=== PATIENT | male | born 1980 | race Caucasian/White ===

== ENCOUNTER 2017-08-17 03:31 | Inpatient (IN) | payer SELFPAY ==
[~2017-08-17] VITALS: Ht 180.3 cm; Wt 64.2 kg
[2017-08-17] VITALS (13 sets, daily range): BP systolic 114–131; BP diastolic 71–97
[2017-08-17 03:59] LABS: HEMOGLOBIN 12.7 G/DL (13.3-17.7); RED BLOOD COUNT 4.14 10^6/uL (4.35-5.85); RED CELL DISTRIBUTION WIDTH 13.2 % (10.0-14.5); WHITE BLOOD COUNT 9.2 10^3/uL (4.3-11.0)
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
[2017-08-17] MEDS ORDERED: TETANUS,DIPTH,PERTUSS P/F (BOOSTRIX) 0.5 ML VIAL IM ONE ×2 (04:15→04:39)
[2017-08-17 04:21] LABS: FIBRIN DEGRADATION PRODUCTS 1.1 UG/ML (0.00-0.49); INR 1.2 (0.8-1.4); PROTHROMBIN TIME PATIENT 14.9 SEC (12.2-14.7)
[2017-08-17 04:23] LABS: ALANINE AMINOTRANSFERASE 28 U/L (0-55); ALBUMIN 4.4 GM/DL (3.2-4.5); ALKALINE PHOSPHATASE 91 U/L (40-136); BILIRUBIN,DIRECT 0.4 MG/DL (0.0-0.3); BILIRUBIN,INDIRECT 0.6 MG/DL; BUN/CREATININE RATIO 11; CALCIUM 9.5 MG/DL (8.5-10.1); CHLORIDE 110 MMOL/L (98-107); CREATINE KINASE 828 U/L (30-200); CREATININE SERUM 1.48 MG/DL (0.60-1.30); GFR ESTIMATED 53; GLUCOSE 192 MG/DL (70-105); MAGNESIUM 2.5 MG/DL (1.8-2.4); PHOSPHORUS 4.7 MG/DL (2.3-4.7); POTASSIUM 3.3 MMOL/L (3.6-5.0); SODIUM 142 MMOL/L (135-145); TOTAL PROTEIN 7.6 GM/DL (6.4-8.2)
[2017-08-17 04:31] LABS: CARBON DIOXIDE 8 MMOL/L (21-32)
[2017-08-17] MEDS ORDERED: fentaNYL INJECTION 100 MCG/2 ML AMP IVP STA (04:36)
[2017-08-17] MEDS ORDERED: LACTATED RINGERS 1,000 ML IV SCH (04:38)
[2017-08-17] MEDS ORDERED: LACTATED RINGERS 1,000 ML IV ONE (04:38)
[2017-08-17] MEDS ORDERED: NS IV 1000 ML 1,000 ML ONE (04:38)
[2017-08-17] MEDS ORDERED: fentaNYL INJECTION 100 MCG/2 ML AMP ONE (04:38)
[2017-08-17] MEDS ORDERED: NS IV 1000 ML 1,000 ML IV SCH (04:38)
[2017-08-17] MEDS ORDERED: NALOXONE 0.4 MG/ML 1 ML (NARCAN) VIAL IV PRN (04:45)
[2017-08-17] MEDS ORDERED: HYDROcodone/APAP 7.5 MG/325 MG (LORTAB, LORCET PLUS) TABLET PO PRN (04:45)
[2017-08-17] MEDS ORDERED: metroNIDAZOLE 500MG/100ML IVPB 100 ML IV SCH (04:45)
[2017-08-17] MEDS ORDERED: METOCLOPRAMIDE INJ 10 MG/2 ML (REGLAN) IV PRN (04:45)
[2017-08-17] MEDS ORDERED: ONDANSETRON 4 MG/2 ML (SDV) Z0FRAN IV PRN (04:45)
[2017-08-17] MEDS ORDERED: diphenhydrAMINE 50 MG/ML INJ (BENADRYL) IV PRN (04:45)
[2017-08-17] MEDS ORDERED: RT-ALBUTEROL SULF 2.5 MG/3 ML PRE-MIX VIAL INH SCH (04:45)
[2017-08-17] MEDS ORDERED: diphenhydrAMINE 50 MG/ML INJ (BENADRYL) IVP PRN (04:45)
[2017-08-17] MEDS ORDERED: fentaNYL INJECTION 100 MCG/2 ML AMP IVP PRN (04:45)
[2017-08-17 04:56] LABS: ABG BASE EXCESS -7.1 MMOL/L (-2.5-2.5); ABG OXYGEN SATURATION 97 % (94-100); ABG PCO2 31 MMHG (35-45); ABG PH 7.36 (7.37-7.43); ABG PO2 94 MMHG (79-93); ABG TCO2 18.2 MMOL/L (21.0-31.0)
[2017-08-17 04:57] LABS: ALLENS TEST YES-POS; PATIENT TEMP 98.6; VENTILATOR NO
[2017-08-17] MEDS ORDERED: NS 250 ML (IVPB) BAG IV ONE (05:00)
[2017-08-17] MEDS ORDERED: IOHEXOL 350 MG/ML 100 ML (OMNIPAQUE 350) VIAL IV ONE (05:00)
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
[2017-08-17] MEDS ORDERED: LIDOCAINE 2% 20 ML (XYLOCAINE) VIAL ONE (05:27)
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
[2017-08-17] MEDS ORDERED: ceFAZolin 2 GM IV Premixed 50 ML IV SCH (06:00)
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
[2017-08-17] MEDS ORDERED: SENNA W/DOCUSATE (SENOKOT S) TABLET PO SCH (09:00)
[2017-08-17] MEDS ORDERED: PANTOPRAZOLE 40 MG/10 ML (PROTONIX) VIAL IV SCH (09:00)
[2017-08-17] MEDS: RT-ALBUTEROL SULF 2.5 MG/3 ML PRE-MIX VIAL INH SCH ×2 (10:07→14:37)
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
[2017-08-17] MEDS ORDERED: IBUP-1780 PO (11:58)
[2017-08-17] MEDS ORDERED: CEPH-507 PO (11:58)
--- NOTE | 2017-08-17 12:00 | Discharge Inst-Surgical ---
D/C Lap Instructions-RENEA New, Converted, or Re-Newed RX: RX on Chart Follow Up Appt in 2 weeks Activity as tolerated No driving for 24 hours Incentive Spirometry use every 2 hours while awake Regular Diet Symptoms to Report: Fever over 101 degree F, Nausea/Vomiting Infection Signs and Symptoms to report: Increased redness, Foul odor of wound, Increased drainage Bathing instructions: May shower Operative Area Clean/Dry; Keep incision clean/dry If any problems/questions: Contact your physician or go to Emergency Room NEERAJ MEIER MD Aug 17, 2017 12:00 pm
[2017-08-18] MEDS ORDERED: ONDANSETRON 4 MG/2 ML (SDV) Z0FRAN IVP PRN (04:45)
== END 2017-08-17 17:51 | disposition home or self-care (01) | DRG 155 ==
LOC: EDUNIT# 03:31 → ER 03:33 → 4TH 05:00 → ICU 05:03
PROVIDERS: ADMIT Surgery; ATTEND Surgery
PROC: 0HQ0XZZ Repair Scalp Skin, External Approach (ICD-10-PCS; principal; 2017-08-17)
DX: S02.2XXA Fracture of nasal bones, initial encounter for closed fracture (principal); E87.2 Acidosis; S01.01XA Laceration without foreign body of scalp, initial encounter; F15.90 Other stimulant use, unspecified, uncomplicated; Y00.XXXA Assault by blunt object, initial encounter; Z23 Encounter for immunization
CPT/HCPCS: 36415; 36600; 70450; 70486; 71260; 72125; 72128; 72131; 73060; 73090; 74177; 80048; 80076; 80320; 82550; 82805; 83605; 83735; 84100; 84484; 85027; 85379; 85384; 85610; 85730; 86850; 86900; 86901; 86920; 90471; 90715; 93005; 94640; 94664; 96361; 96374